=== PATIENT | female | born 1980 | race Native Hawaiian/Other Pacific Islander ===

== ENCOUNTER 2019-03-30 17:51 | Emergency (ER) | payer BC ==
[~2019-03-30] VITALS: Ht 160 cm; Wt 81.6 kg
[2019-03-30] MEDS ORDERED: LEFLUNOMIDE20 MG PO (18:16)
[2019-03-30] MEDS ORDERED: TIZA4TAB5 PO (18:16)
[2019-03-30 20:55] VITALS: BP 139/75; TEMP 98.4
== END 2019-03-30 20:55 | disposition home or self-care (01) ==
LOC: ED 17:51
DX: S33.5XXA Sprain of ligaments of lumbar spine, initial encounter (principal); V43.52XA Car driver injured in collision with other type car in traffic accident, initial encounter; Y92.410 Unspecified street and highway as the place of occurrence of the external cause
CPT/HCPCS: 96372; 99283; J1885